=== PATIENT | female | born 1985 | race Caucasian/White ===

== ENCOUNTER 2022-05-16 06:31 | Emergency (ER) | payer MEDICAID ==
[~2022-05-16] VITALS: Ht 160 cm; Wt 61.3 kg
--- NOTE | 2022-05-16 06:48 | NUR ---
URINE SENT TO LAB
--- NOTE | 2022-05-16 06:50 | NUR ---
PRESENTED TO THE ER FOR C/O SI, REQUESTING VOLLUNTARY [facility] ADMISSION. PT AMBULATORY WITH STEADY GAITS TO THE BATHROOM. URINE SAMPLE WAS OBTAINED, COIVD SWAB DONE AND PATIENT WAS PLACED ON SI PRECAUTION. ALL BELONGINGS TAKEN AWAY. WILL CONTINUE TO MONITOR
--- NOTE | 2022-05-16 06:54 | NUR ---
COVID SWAB SENT TO LAB
[2022-05-16 07:20] LABS: BASOPHILS % (AUTO) 0.3 % (0.0-2.0); EOSINOPHILS % (AUTO) 0.4 % (0.0-6.0); HEMATOCRIT 35 % (33-45); HEMOGLOBIN 11.4 g/dL (11.5-14.8); LYMPHOCYTES # (AUTO) 1.8 K/uL (0.8-4.8); LYMPHOCYTES % (AUTO) 21.8 % (20.0-44.0); MEAN CORPUSCULAR HGB CONC 33 g/dl (31.0-36.0); MEAN CORPUSCULAR VOLUME 87 fL (82-100); MONOCYTES # (AUTO) 0.6 K/uL (0.1-1.30); MONOCYTES % (AUTO) 7.5 % (2.0-12.0); NEUTROPHILS # (AUTO) 5.9 K/uL (1.8-8.9); PLATELET COUNT (AUTO) 299 K/uL (150-450); RED BLOOD CELL COUNT(AUTO) 4.02 MIL/uL (4.0-5.2); WHITE BLOOD COUNT (AUTO) 8.5 K/uL (4.3-11.0)
[2022-05-16 07:33] LABS: BILIRUBIN,URINE 1+ (NEGATIVE); COLOR,URINE YELLOW (YELLOW); LEUKOCYTE ESTERASE ,URINE TRACE (NEGATIVE); NITRITE, URINE NEGATIVE (NEGATIVE); PROTEIN,URINE TRACE mg/dl (NEGATIVE); UGLUCOSE NEGATIVE (NEGATIVE); UROBILINOGEN,URINE 0.2 EU/dL (0.2)
[2022-05-16 07:34] LABS: CALCIUM, SERUM 8.8 mg/dL (8.5-10.1); CARBON DIOXIDE 26 mmol/L (21-32); CHLORIDE 103 mmol/L (98-107); CREATININE 0.6 mg/dL (0.6-1.3); GLUCOSE 107 mg/dL (74-106); POTASSIUM 3.4 mmol/L (3.5-5.1); SODIUM SERUM 137 mmol/L (136-145); UREA NITROGEN, BLOOD 15 mg/dL (7-18)
[2022-05-16 07:39] LABS: ALANINE AMINOTRANSFERASE 17 U/L (12-78); ALKALINE PHOSPHATASE 95 U/L (46-116); ASPARTATE AMINOTRANSFERASE 20 U/L (15-37); BILIRUBIN,DIRECT 0.2 mg/dL (0.0-0.2); BILIRUBIN,TOTAL 0.6 mg/dL (0.2-1.0); TOTAL PROTEIN, SERUM 7.5 g/dL (6.4-8.2)
[2022-05-16 07:46] LABS: ALCOHOL, BLOOD < 3 mg/dL (0-0)
[2022-05-16 07:59] LABS: BACTERIA,URINE Few /HPF (None Seen); RBC,URINE 0-2 /HPF (0-2); SQUAMOUS EPITHELIAL CELL,UR Moderate /HPF (None Seen)
[2022-05-16 08:00] LABS: MUCUS,URINE Moderate /LPF (None Seen)
--- NOTE | 2022-05-16 14:12 | NUR ---
ACCEPTED [facility] UNDER THE CARE OF DR. SMITH NUMBER FOR REPORT [phone] CALLING FOR [facility] TRNASPORT
--- NOTE | 2022-05-16 14:15 | NUR ---
CALLED [facility] FOR TRANSPORT ETA 1500
--- NOTE | 2022-05-16 14:38 | NUR ---
ATTEMPTED TO GIVE REPORT, VOICEMAIL IS FULL. WILL CALL AGAIN AT A LATER TIME.
[2022-05-16 15:32] VITALS: BP 122/68
--- NOTE | 2022-05-16 15:33 | NUR ---
PT TRASNPORT TO [facility] IN STABLE CONDITION. PT BELONGINGS GIVEN TO EMT'S.
== END 2022-05-16 15:34 ==
LOC: ER 06:31
DX: R45.851 Suicidal ideations (principal); F32.A Depression, unspecified; Z20.822 Contact with and (suspected) exposure to COVID-19
CPT/HCPCS: 99285; 85025; 80048; 80076; 84703; 81001; 36415; 87426; 80143; 80320; 80307; C9803; G0480